=== PATIENT | female | born 1945 | race Caucasian/White ===

== ENCOUNTER 2022-07-20 09:24 | Emergency (ER) | payer MEDICARE, OTHER ==
[~2022-07-20] VITALS: Ht 172.7 cm; Wt 77.1 kg
[2022-07-20] MEDS ORDERED: MACRODANTIN100 M1 PO (10:27)
[2022-07-20] MEDS ORDERED: Pyridium200 MG PO (10:27)
== END 2022-07-20 10:58 | disposition home or self-care (01) ==
LOC: ER 09:24
DX: N39.0 Urinary tract infection, site not specified (principal); R35.0 Frequency of micturition
CPT/HCPCS: A9270